=== PATIENT | male | born 1970 | race Caucasian/White ===

== ENCOUNTER → 2019-12-30 09:25 | Outpatient (POV) | payer BC, SELFPAY ==
[2019-12-30 09:33] VITALS: BMI 32.3
--- NOTE | 2019-12-30 13:03 | [facility].PMCON ---
Assessment and Plan (1) DDD (degenerative disc disease), cervical Current visit: Yes Status: Chronic Category: Medical Code(s): M50.30 - Other cervical disc degeneration, unspecified cervical region (2) DDD (degenerative disc disease), lumbar Current visit: Yes Status: Chronic Category: Medical Code(s): M51.36 - Other intervertebral disc degeneration, lumbar region - Assessment and plan all Dx Assessment and Plan for all problems:: We will have the patient Percocet 7.5 twice daily and Riverdale 7.5 3 times daily refilled. We will give him 2 months worth of prescriptions. We will follow-up with him in [place]. Patient would like to start physical therapy we will send an order to what ever location he would like. I informed the patient he will need to call our office to tell us where to send this. This encounter was performed as a telemedicine visit via secure 2 way video and audio to minimize risk and transmission of Covid-19. The patient and we understand the limitations of a telemedicine visit including inability to check reflexes, possibly missing subtle findings on physical exam. Alternative options were presented to the patient and the patient elected to proceed with the visit. We specifically discussed risk factors for Covid-19 including age, heart or lung disease, diabetes, immunosuppression and travel. We also discussed that NSAIDs may worsen Covid-19 infection symptoms and that they should not be used to treat Covid-19 symptoms. Patient was also informed that corticosteroids in any form oral or injectable will decrease immune response and may increase risk of Covid-[address] Baum has reviewed this patient's chart and this note and agrees with plan of care. Patient has been instructed to call the office if they have any issues prior to the next appointment. Patient has been prescribed a controlled substance after being counseled on the medication, medication safety, and possible side effects. NEO report has been obtained and reviewed prior to prescription and found to be appropriate. Opioid contract was reviewed and signed by the patient, and that they have agreed to all of the terms set forth by our compliance program. HPI - Data of Consult Consult date: 12/30/19 Requesting Physician: Dacia Akers APRN Primary Care Provider: Referral Provider, MD - Consult Narrative Reason for consult: Medication refills History of present illness: Mr. Pringle is a 49 year old male who presents today for a telehealth consult and for medication refills. Patient is already an established patient at our [place] clinic and is soon to be transferred to the [facility]. He is being treated for low back pain secondary to degenerative disc disease lumbar spine with lumbar radiculopathy lumbar spondylosis and cervical neck pain secondary to degenerative disc disease cervical spine. He is currently on Riverdale 7.5 mg 1 p.o. 3 times daily and Percocet 7.5 mg 1 p.o. twice daily. He states that this is beneficial for his pain. He rates his pain today a 4 out of 10 mostly in his neck at this time. Patient of Dr. baum is had long discussions in regards to the need for decreasing his oral narcotics. Patient is looking into PRP. CC: Dacia Akers APRN [facility] History I have reviewed the patient's past medical history: Yes Medical History: Reports:: Hyperlipidemia, Hypertension Denies:: Cancer, Diabetes Mellitus Type 1, Diabetes Mellitus Type 2, MRSA *Have you ever received a pneumonia vaccine?: Yes *Have you received a flu vaccine this season?: Yes Other Medical History: Reports: Thyroid Disease Laterality Cases: Bilateral: Tonsillectomy Other Surgeries: Yes: Sinus Surgery Amputation: No - *Social History Smoking Status: Never smoker Alcohol Intake: never *Occupational Status:: other Housing: house Household Members: other *Travel in the last 8 weeks: None Family Hx:: Unable to obtain Review of Syst
== END ==
PROVIDERS: Visit Provider Clinical Nurse Specialist Family Health
DX: M50.30 Other cervical disc degeneration, unspecified cervical region (principal); M51.36 Other intervertebral disc degeneration, lumbar region
CPT/HCPCS: 99212